=== PATIENT | male | born 1940 | race Caucasian/White ===

== ENCOUNTER 2017-02-25 14:13 | Emergency (ER) | payer OTHER ==
[~2017-02-25] VITALS: Ht 182.9 cm; Wt 92.0 kg
[~2017-02-25 14:13] MED LIST: MVI
[2017-02-25 14:19] VITALS: BP 190/98; PULSE 110; RESP 18; TEMP 98.1; O2SAT 96
--- NOTE | 2017-02-25 14:46 | PD ---
HPI Chief Complaint: Complaint Time Seen by Provider: 14:32 Travel History International Travel<30 days: No Contact w/Intl Traveler<30days: No History of Present Illness HPI Patient is a 76-year-old male who presents to emergency room with complaints of urinary retention. Patient reports that she was [facility] as he is having problems with urination. Patient reports that he had dysuria as well as decreased urinary output. Patient was started on Macrobid as well as Pyridium yesterday. Patient return to the emergency room as he reports that he has not been able to urinate for the past 2-3 hours. Patient reports the urge to urinate but the inability to do so. Patient denies history of urinary retention the past, denies history of BPH. Patient reports that he has never seen a urologist in the past. Patient with no other complaints. PFSH Past Medical History Medical History: Denies Significant Hx Past Surgical History Other Surgery: Yes (hernia surgery in the past) Social History Alcohol Use: No Tobacco Use: No Allergies-Medications (Allergen,Severity, Reaction): Coded Allergies: ciprofloxacin (Verified Allergy, Unknown, 02/25/17) Reported Meds & Prescriptions Reported Meds & Active Scripts Active Reported Phenazopyridine (Phenazopyridine HCl) 200 Mg Tab 200 Mg PO Q8H PRN Nitrofurantoin Monohydrate Macrocrystals (Nitrofurantoin Monoh/Nitrofur Macro) 100 Mg Cap 100 Mg PO BID Review of Systems General / Constitutional: No: Fever Eyes: No: Visual changes HENT: No: Headaches Cardiovascular: No: Chest Pain or Discomfort Respiratory: No: Shortness of Breath Gastrointestinal: No: Abdominal Pain Genitourinary: Positive: Dysuria, Decreased Urinary Output, No: Urgency Musculoskeletal: No: Pain Skin: No Rash Neurologic: No: Weakness Psychiatric: No: Depression Endocrine: No: Polydipsia Hematologic/Lymphatic: No: Easy Bruising Physical Exam Narrative GENERAL: Mild distress SKIN: Focused skin assessment warm/dry. HEAD: Atraumatic. Normocephalic. NECK: Trachea midline. No JVD. CARDIOVASCULAR: Regular rate and rhythm. No murmur appreciated. RESPIRATORY: No accessory muscle use. Clear to auscultation. Breath sounds equal bilaterally. GASTROINTESTINAL: Abdomen soft, non-tender, nondistended. MUSCULOSKELETAL: No obvious deformities. No clubbing. No cyanosis. No edema. NEUROLOGICAL: Awake and alert. Normal speech. PSYCHIATRIC: Appropriate mood and affect; insight and judgment normal. Data Data Last Documented VS Vital Signs Date Time Temp Pulse Resp B/P Pulse Ox O2 Delivery O2 Flow Rate FiO2 02/25/17 14:19 98.1 110 18 190/98 96 Room Air Orders Basic Metabolic Panel (Bmp) (02/25/17 14:38) Urinalysis - C+S If Indicated (02/25/17 14:38) Urinary Catheter Insert/Apply (02/25/17 14:38) Bladder Scan PRN (02/25/17 14:43) Mandatory Outpatient Referral (02/25/17 15:) Labs Laboratory Tests Test 02/25/17 15: Urine pH 5.5 Urine Protein TRACE mg/dL Urine Glucose (UA) 100 mg/dL Urine Ketones TRACE mg/dL Urine Occult Blood TRACE Urine Nitrite POS Urine Bilirubin NEG Urine Leukocyte Esterase NEG Sodium Level 138 MEQ/L Potassium Level 3.5 MEQ/L Chloride Level 104 MEQ/L Carbon Dioxide Level 24.5 MEQ/L Anion Gap 10 MEQ/L Blood Urea Nitrogen 16 MG/DL Random Glucose 116 MG/DL Calcium Level 8.9 MG/DL [facility] Medical Decision Making Medical Screen Exam Complete: Yes Emergency Medical Condition: Yes Interpretation(s) Vital Signs Date Time Temp Pulse Resp B/P Pulse Ox O2 Delivery O2 Flow Rate FiO2 02/25/17 14:19 98.1 110 18 190/98 96 Room Air Differential Diagnosis Differential includes renal failure, acute urinary retention, cystitis Narrative Course Patient is a 76-year-old male who presents to emergency room with complaints of acute urinary retention. Patient reports that he was seen at urgent care yesterday and was started on Pyridium as well as Macrobid, reports that for the past 2-3 hours, he has the urge to urinate but is unable to urinate. Patient reports that he has never had a problem with urinary retention in the past, he has been taking his Macrobid as prescribed. Plan to bladder scan patient and place farrell catheter if he is in acute urinary retention. Will check BMP for renal function as well as repeat UA. Farrell catheter placed, >600ml of urine was evacuated from bladder Patient understands need to follow up with urologist as outpatient. He will return to ER as needed. A mandatory referral urology for patient for management of Farrell catheter secondary to acute urinary retention. Patient with uti - he will continue macrobid as prescribed He will return to ER as needed Diagnosis Primary Impression: Acute urinary retention Additional Impression: UTI (urinary tract infection) Qualified Code: N30.00 - Acute cystitis without hematuria Referrals: Shivam Aparicio MD, Shawn Wayne DO Patient Instructions: General Instructions Additional Instructions: Please follow up with all cultures from today Please follow up with urologist as soon as possible - call first thing in the morning for earliest follow up appointment Please take all medications as prescribed - please complete full course of antibiotics prescribed to your yesterday at the [facility] Return to ER if symptoms worsen or persist Please follow up with all cultures from today Disposition: 01 DISCHARGE HOME Condition: Stable Janie Jauregui DO Feb 25, 2017 14:46
[2017-02-25] MEDS ORDERED: NITR100C4 PO (14:50)
[2017-02-25] MEDS ORDERED: PHEN-430 PO (14:50)
[2017-02-25 15:41] LABS: POTASSIUM 3.5 MEQ/L (3.5-5.1)
[2017-02-25 15:42] LABS: BLOOD, URINE TRACE (NEG); GLUCOSE,URINE 100 mg/dL (NEG); KETONE, URINE TRACE mg/dL (NEG); PH, URINE 5.5 (5.0-8.5)
[2017-02-25 15:46] LABS: BICARBONATE 24.5 MEQ/L (21.0-32.0)
[2017-02-25 15:48] LABS: NITRITE,URINE POS (NEG)
[2017-02-25 15:49] LABS: METHOD OF COLLECTION CLEAN CATCH; URINE COLOR ORANGE (YELLW/STRAW)
[2017-02-25 15:50] LABS: COMMENT (UR) CULTURE INDICATED; CULTURE IF INDICATED CULTURE INDICATED; RBC, URINE 0-3 /hpf (0-3); WBC, URINE 0-2 /hpf (0-5)
== END 2017-02-25 16:23 | disposition home or self-care (01) ==
LOC: PHED 14:13
DX: R33.9 Retention of urine, unspecified (principal); N30.00 Acute cystitis without hematuria
CPT/HCPCS: 51702; 80048; 81001; 87086